=== PATIENT | female | born 1990 | race Caucasian/White ===

== ENCOUNTER 2025-06-14 19:44 | Emergency (ER) | payer OTHER ==
[2025-06-14 20:37] VITALS: BP 119/90; PULSE 116; RESP 19; TEMP 98.2; BMI 29.7
== END 2025-06-14 21:10 | disposition home or self-care (01) ==
LOC: FER 19:44
DX: O09.521 Supervision of elderly multigravida, first trimester (principal); O20.9 Hemorrhage in early pregnancy, unspecified; Z3A.01 Less than 8 weeks gestation of pregnancy
CPT/HCPCS: 36415; 76817-TC; 84702; 86850; 86900; 86901; 99284-25